=== PATIENT | female | born 1970 | race African-American/Black ===

== ENCOUNTER 2024-07-04 11:45 | Emergency (ER) | payer MEDICAID, OTHER ==
[~2024-07-04] VITALS: Ht 170.2 cm; Wt 87.1 kg
--- NOTE | 2024-07-04 12:52 | ED.PDOC ---
Eye-HPI HPI Comments 54-year-old with a history of right cerumen impaction presents with a chief complaint of diminished hearing to the right ear. Believes it may be ear wax Associated with the itchiness Denies ear discharge Denies otalgia, redness of the ear Denies hearing loss Denies persistent ringing in the ear Denies fever chills night sweats unintentional weight loss Denies nausea vomiting severe headache or recent vision changes Chief Complaint: Earache Time Seen by MD: 12:25 Primary Care Provider: UNKNOWN Reviewed Notes: Nurses Notes, Medications, Allergies Allergies: Coded Allergies: NO KNOWN ALLERGIES (Unverified , 07/04/24) Home Meds Active Scripts Carbamide Peroxide (Otic) ([facility]n Earwax Removal Kit) 6.5 % Shanta, 6.5 % OT UD for 1 Day, #1 KIT 0 Refills Prov:FINN HUBBARD Glenna ALFARO 07/04/24 Information Source: Patient Mode of Arrival: Ambulatory All Other Systems: Reviewed and Negative (per hpi) Physical Exam General Appearance: No Apparent Distress, Normal HEENT: Normal ENT Inspection, Pharynx Normal, TM Abnormal (L) (cerumen impaction) Neck: Full Range of Motion, Non-Tender, Normal, Normal Inspection Respiratory: Chest Non-Tender, Lungs Clear, No Accessory Muscle Use, No Respiratory Distress, Normal Breath Sounds Cardiovascular: No Edema, No JVD, No Murmur, No Gallop, Normal Peripheral Pulses, Regular Rate/Rhythm Breast Exam: Deferred Gastrointestinal: No Organomegaly, Non Tender, No Pulsatile Mass, Normal Bowel Sounds, Soft Genitalia: Deferred Pelvic: Deferred Rectal: Deferred Extremities: No calf tenderness, Normal capillary refill, Normal inspection, Normal range of motion, Non-tender, No pedal edema Musculoskeletal : Apperance: Normal Neurologic: Alert, 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 Was a procedure done?: No EENT DIFF Eye: Other X-Ray, Labs, Meds, VS Vital Signs Date Time Temp Pulse Resp B/P (MAP) Pulse Ox O2 Delivery O2 Flow Rate FiO2 07/04/24 12:59 92 16 98 Room Air 07/04/24 12:59 97.2 92 16 107/76 (86) 98 97.2 07/04/24 11:58 97.2 92 16 107/76 (86) 98 X-Ray, Labs, Meds, VS Comment Exam findings consistent with impacted cerumen Risk and benefits were discussed with the family, including tympanic membrane perforation, hearing loss, otitis externa, vertigo, and minor canal abrasion if wax is adherent to the epithelium verbally consented to the procedure Patient tolerated procedure well On reevaluation of ear, improved ear cannal with small cerumen, visualization of TM is intact. Avoid self instrumentation/Q-tips Return precautions were discussed including fever vertigo hearing loss or purulent drainage Time of 1ST Reevaluation: 14:00 Reevaluation 1ST: Improved Patient Education/Counseling: Diagnosis, Treatment Family Education/Counseling: Diagnosis, Treatment Departure 1 Departure Time of Disposition: 14:10 Impression: Primary Impression: Impacted cerumen of right ear Disposition: 01 HOME / SELF CARE / HOMELESS Condition: Stable e-Prescriptions Carbamide Peroxide (Otic) ([facility] Earwax Removal Kit) 6.5 % Shanta 6.5 % OT UD for 1 Day, #1 KIT 0 Refills Prov: FINN HUBBARD NP 07/04/24 Critical Care Note Critical Care Time?: No Stability Stability form required: No Heart Score Heart Score: Heart Score Response (Comments) Value History N/A 0 EKG N/A 0 Age N/A 0 Risk Factors N/A 0 Troponin N/A 0 Total 0 FINN HUBBARD NP Jul 04, 2024 12:52
[2024-07-04 12:59] VITALS: BP 107/76; PULSE 92; RESP 16; TEMP 97.2; O2SAT 98
[2024-07-04] MEDS ORDERED: [UNRECOGNIZED DRUG - CODE] OT (14:12)
== END 2024-07-04 14:12 | disposition home or self-care (01) ==
LOC: ER 11:45
DX: H61.21 Impacted cerumen, right ear (principal)